=== PATIENT | male | born 1980 | race Two or more races ===

== ENCOUNTER 2018-02-17 12:49 | Emergency (ER) | payer OTHER ==
[~2018-02-17 12:49] MED LIST: ABIL30TA5 PO; BENZ1TAB PO; CELE20TA PO; DEPA500T3 PO; TRAZ100T4 PO
[2018-02-17 13:13] VITALS: BP 125/60; PULSE 85; RESP 20; TEMP 97.3; O2SAT 99
[2018-02-17 13:31] VITALS: BP 114/79; PULSE 73; RESP 18; O2SAT 99
[2018-02-17] MEDS ORDERED: TRAZ100T10 PO (13:39)
[2018-02-17] MEDS ORDERED: BENZ0.5T PO (13:39)
[2018-02-17] MEDS ORDERED: SODIUM CHLOR 0.9% 1000 ML INJ 1,000 ML IV ONE (13:45)
[2018-02-17] MEDS ORDERED: SODIUM CHLORIDE 0.9% FLUSH 10 ML FLUSH IVF PRN (13:45)
[2018-02-17 13:49] VITALS: O2SAT 99
--- NOTE | 2018-02-17 14:02 | PD ---
HPI Chief Complaint: Neuro Symptoms/ Deficits Time Seen by Provider: 13:35 Travel History International Travel<30 days: No Contact w/Intl Traveler<30days: No Traveled to known affect area: No History of Present Illness HPI 38-year-old male with PMH of meningeal blastoma status post craniotomy, last radiation 02/03/13, with residual learning disability, ambulatory difficulties and speech deficit presents to the ED via private vehicle for evaluation of problems with gait and slurred speech observed by coworkers today. Patient's caregiver is at bedside and states that the patient seems a little confused but is otherwise at baseline. Patient endorses mild frontal headache and sore throat. He denies dizziness, blurred vision, chest pain, palpitations, shortness of breath, cough, abdominal pain, nausea, vomiting, changes in bowel habits, dysuria. PFSH Past Medical History Blood Disorders: No Bipolar Disorder: Yes Anxiety: Yes Depression: Yes Cancer: Yes (brain) Cardiovascular Problems: No Chemotherapy: Yes (5 years ago) Diabetes: No Diminished Hearing: No Endocrine: No Genitourinary: No Hepatitis: Yes Hiatal Hernia: No Immune Disorder: No Medical other: Yes (SCHZIOPHRENIC; BIPOLOAR; MENTAL RETARDATION,PHYSICAL OUTBURST) Musculoskeletal: No Neurologic: Yes (AUTISTIC) Psychiatric: Yes (ANXIETY) Reproductive: No Respiratory: No Radiation Therapy: Yes (5 years ago) Schizophrenia: Yes Seizures: Yes Thyroid Disease: No Past Surgical History AICD: No Arteriovenous Shunt: No Insulin Pump: No Joint Replacement: No Neurologic Surgery: Yes (TUMOR REMOVED FROM BRAIN STEM) Pacemaker: No Other Surgery: No Social History Alcohol Use: No Tobacco Use: No Substance Use: No Allergies-Medications (Allergen,Severity, Reaction): Coded Allergies: No Known Allergies (Verified Adverse Reaction, Unknown, 02/17/18) Reported Meds & Prescriptions Reported Meds & Active Scripts Active Depakote ER (Divalproex Sodium) 500 Mg Yunior 500 Mg PO BID Celexa (Citalopram Hydrobromide) 20 Mg Tab 20 Mg PO DAILY Abilify (Aripiprazole) 30 Mg Tab 30 Mg PO HS Reported Benztropine (Benztropine Mesylate) 0.5 Mg Tab 1 Mg PO BID Trazodone (Trazodone HCl) 100 Mg Tablet 100 Mg PO HS Review of Systems Except as stated in HPI: all other systems reviewed are Neg Physical Exam Narrative GENERAL: Well-nourished white male with learning disability in no acute distress. SKIN: Focused skin assessment warm/dry. HEAD: Normocephalic. Atraumatic. EYES: No scleral icterus. No injection or drainage. PERRLA. EOMI. NECK: Supple, trachea midline. No JVD or lymphadenopathy. CARDIOVASCULAR: Regular rate and rhythm without murmurs, gallops, or rubs. RESPIRATORY: Breath sounds clear and equal bilaterally. No accessory muscle use. GASTROINTESTINAL: Abdomen soft, non-tender, nondistended. Active bowel sounds. MUSCULOSKELETAL: No cyanosis, or edema. Moves extremities spontaneously. NEUROLOGICAL: Awake and alert. Cranial nerves II through XII intact. Motor and sensory grossly within normal limits. Five out of 5 muscle strength in all muscle groups. Normal speech. BACK: Nontender without obvious deformity. No CVA tenderness. Data Data Last Documented VS Vital Signs Date Time Temp Pulse Resp B/P (MAP) Pulse Ox O2 Delivery O2 Flow Rate FiO2 02/17/18 16:28 02/17/18 13:49 99 Room Air 02/17/18 13:31 73 18 02/17/18 13:13 97.3 Orders Orders Electrocardiogram (02/17/18 13:43) Complete Blood Count With Diff (02/17/18 13:43) Comprehensive Metabolic Panel (02/17/18 13:43) Act Partial Throm Time (Ptt) (02/17/18 13:43) Prothrombin Time / Inr (Pt) (02/17/18 13:43) Ct Brain W/O Iv Contrast(Rout) (02/17/18 13:43) Ecg Monitoring (02/17/18 13:43) Iv Access Insert/Monitor (02/17/18 13:43) Oximetry (02/17/18 13:43) Sodium Chloride 0.9% Flush (Ns Flush) (02/17/18 13:45) Sodium Chlor 0.9% 1000 Ml Inj (Ns 1000 M (02/17/18 13:45) Calcium Carbonate Chew (Tums Chew) (02/17/18 15:15) Ed Discharge Order (02/17/18 15:45) Labs Laboratory Tests Test 02/17/18 13:52 White Blood Count 4.5 TH/MM3 Red Blood Count 4.34 MIL/MM3 Hemoglobin 14.1 GM/DL Hematocrit 40.9 % Mean Corpuscular Volume 94.3 FL Mean Corpuscular Hemoglobin 32.5 PG Mean Corpuscular Hemoglobin Concent 34.5 % Red Cell Distribution Width 13.4 % Platelet Count 153 TH/MM3 Mean Platelet Volume 8.9 FL Neutrophils (%) (Auto) 45.2 % Lymphocytes (%) (Auto) 44.0 % Monocytes (%) (Auto) 8.3 % Eosinophils (%) (Auto) 2.2 % Basophils (%) (Auto) 0.3 % Neutrophils # (Auto) 2.0 TH/MM3 Lymphocytes # (Auto) 2.0 TH/MM3 Monocytes # (Auto) 0.4 TH/MM3 Eosinophils # (Auto) 0.1 TH/MM3 Basophils # (Auto) 0.0 TH/MM3 CBC Comment DIFF FINAL Differential Comment Prothrombin Time 10.6 SEC Prothromb Time International Ratio 1.0 RATIO Activated Partial Thromboplast Time 27.0 SEC Blood Urea Nitrogen 18 MG/DL Creatinine 0.74 MG/DL Random Glucose 90 MG/DL Total Protein 7.0 GM/DL Albumin 3.3 GM/DL Calcium Level 8.3 MG/DL Alkaline Phosphatase 58 U/L Aspartate Amino Transf (AST/SGOT) 19 U/L Alanine Aminotransferase (ALT/SGPT) 18 U/L Total Bilirubin 0.3 MG/DL Sodium Level 143 MEQ/L Potassium Level 3.9 MEQ/L Chloride Level 105 MEQ/L Carbon Dioxide Level 33.7 MEQ/L Anion Gap 4 MEQ/L Estimat Glomerular Filtration Rate 118 ML/MIN MDM Medical Decision Making Medical Screen Exam Complete: Yes Emergency Medical Condition: Yes Differential Diagnosis metabolic derangement versus UTI versus brain mass versus pharyngitis versus other Narrative Course 38-year-old male with PMH of meningeal blastoma s/p craniotomy, last radiation , with residual learning disability, ambulatory difficulties and speech deficit presents to the ED via private vehicle for evaluation of problems with gait and slurred speech observed by coworkers today. Patient's caregiver is at bedside and states that the patient seems a little confused but is otherwise at baseline. Patient endorses mild frontal headache and sore throat. Vitals reviewed. On exam the patient has mildly slurred speech but the patient's caregiver says he is at baseline. He follows commands, no other focal neuro deficits noted. ENT exam is unremarkable. IV was established. Patient was administered 1 L normal saline. EKG rate 73, sinus rhythm. Normal intervals. Normal axis. No acute ST changes. Reviewed by Dr. Bowser. CT brain: Mild periventricular white matter small vessel ischemic changes bilaterally. Mild central cerebral atrophy. No acute infarct acute hemorrhage mass-effect or extra axial fluid collections per radiology read. CBC is unremarkable. Coags within normal limits. CMP with mild hypocalcemia. Patient was administered 1 g calcium chew. He was observed to ambulate with his normal gait in the ED. I discussed the results of the workup with the caregiver. She again she thinks that the patient is at baseline. I think the patient is safe for discharge. Caregivers given strict return precautions. She is agreeable to care plan. Patient is stable and discharged home. Diagnosis Primary Impression: Gait abnormality Additional Impression: Hypocalcemia Referrals: Primary Care Physician Additional Instructions: Rest, hydrate. Return to normal, gentle activity as tolerated. Resume at home medications as previously prescribed. Follow-up with your primary care provider. Return to the ED for worsening symptoms or any urgent or emergent medical condition. Disposition: 01 DISCHARGE HOME Condition: Stable Riya Aguilar Feb 17, 2018 14:02
[2018-02-17 14:03] LABS: BASOPHIL % 0.3 % (0.0-2.0); EOSINOPHIL # 0.1 TH/MM3 (0-0.4); EOSINOPHIL % 2.2 % (0.0-4.0); HEMATOCRIT 40.9 % (39.0-51.0); HEMOGLOBIN 14.1 GM/DL (13.0-17.0); MEAN CELL VOLUME 94.3 FL (80.0-100.0); MEAN CORPUSCULAR HEMOGLOBIN 32.5 PG (27.0-34.0); MEAN CORPUSCULAR HGB CONC 34.5 % (32.0-36.0); MEAN PLATELET VOLUME 8.9 FL (7.0-11.0); MONO % 8.3 % (0.0-8.0); MONOCYTE # 0.4 TH/MM3 (0-0.9); NEUT % 45.2 % (16.0-70.0); PLATELET COUNT 153 TH/MM3 (150-450); RED BLOOD COUNT 4.34 MIL/MM3 (4.50-5.90); RED CELL DISTRIBUTION WIDTH 13.4 % (11.6-17.2); WHITE BLOOD COUNT 4.5 TH/MM3 (4.0-11.0)
[2018-02-17 14:10] LABS: PROTHROMBIN TIME - PATIENT 10.6 SEC (9.8-11.6)
[2018-02-17 14:20] LABS: ALBUMIN 3.3 GM/DL (3.4-5.0); ALT (GPT) 18 U/L (12-78); AST (GOT) 19 U/L (15-37); BICARBONATE 33.7 MEQ/L (21.0-32.0); BLOOD UREA NITROGEN 18 MG/DL (7-18); CALCIUM 8.3 MG/DL (8.5-10.1); CHLORIDE 105 MEQ/L (98-107); CREATININE 0.74 MG/DL (0.60-1.30); GLOMERULAR FILTRATION RATE 118 ML/MIN (>89); GLUCOSE,RANDOM 90 MG/DL (74-106); SODIUM (NA) 143 MEQ/L (136-145)
[2018-02-17 14:22] LABS: ALKALINE PHOSPHATASE 58 U/L (45-117); TOTAL BILIRUBIN ADULT 0.3 MG/DL (0.2-1.0)
--- NOTE | 2018-02-17 14:56 | RADRPT ---
EXAM DATE/TIME: 02/17/2018 14:31 [facility] COMPARISON: MRI BRAIN W & W/O CONTRAST, January 10, 2015, 14:17. CT BRAIN W/O CONTRAST, December 08, 2012, 4:13. INDICATIONS : Dizziness, slurred speech RADIATION DOSE: 38.52 CTDIvol (mGy) MEDICAL HISTORY : Seizures. None. Hepatitis.Brain cancer, scizophrenia SURGICAL HISTORY : None. ENCOUNTER: Initial ACUITY: 1 day PAIN SCALE: 0/10 LOCATION: cranial TECHNIQUE: Multiple contiguous axial images were obtained of the head. Using automated exposure control and adj ustment of the mA and/or kV according to patient size, radiation dose was kept as low as reasonably a chievable to obtain optimal diagnostic quality images. DICOM format image data is available electro nically for review and comparison. FINDINGS: Mild periventricular white matter small vessel ischemic changes are noted bilaterally. Mild central c erebral atrophy is noted. There is no acute infarct, acute hemorrhage, mass effect or extra axial flu id collection. Post surgical changes are noted involving the occipital skull. CONCLUSION: 1. Mild periventricular white matter small vessel ischemic changes bilaterally. 2. Mild central cerebral atrophy. 3. No acute infarct, acute hemorrhage, mass effect or extra axial fluid collections. Valdemar Keith MD on February 17, 2018 at 14:50 Board Certified Radiologist. This report was verified electronically.
[2018-02-17] MEDS ORDERED: CALCIUM CARBONATE 500 MG CHEWABLE TAB CHEW ONE (15:15)
--- NOTE | 2018-02-18 13:41 | EKG ---
Date Performed: 02/17/2018 Time Performed: 13:35:18 PTAGE: 38 years EKG: Sinus rhythm NORMAL ECG PREVIOUS TRACING 01/06/16 Since the previous tracing, no significant change noted DOCTOR: Saul Trent Interpretating Date/Time 02/18/2018 13:40:58
== END 2018-02-17 16:29 | disposition home or self-care (01) ==
LOC: NEPE 12:49
DX: R26.9 Unspecified abnormalities of gait and mobility (principal); E83.51 Hypocalcemia; F84.0 Autistic disorder; F31.9 Bipolar disorder, unspecified; F20.9 Schizophrenia, unspecified; Z85.841 Personal history of malignant neoplasm of brain; Z86.19 Personal history of other infectious and parasitic diseases; Z79.899 Other long term (current) drug therapy
CPT/HCPCS: 70450; 80053; 85025; 85610; 85730; 93005; 99285; J7030